=== PATIENT | male | born 1950 | race Two or more races ===

== ENCOUNTER 2016-10-25 14:16 | Emergency (ER) | payer MEDICARE ==
[2016-10-25] MEDS ORDERED: ACETAMINOPHEN 500 MG TABLET ONE (15:58)
[2016-10-25] MEDS ORDERED: IBUPROFEN 600 MG TABLET ONE (15:58)
[2016-10-25] MEDS ORDERED: PREDNISONE 20 MG TABLET ONE (15:59)
== END 2016-10-25 16:21 | disposition home or self-care (01) ==
LOC: ED 14:16
DX: J36 Peritonsillar abscess (principal)
CPT/HCPCS: 99283 ×2; A9270 ×2; J7512